=== PATIENT | male | born 1990 | race Caucasian/White ===

== ENCOUNTER 2016-11-01 17:32 | Emergency (ER) | payer SELFPAY ==
[2016-11-01 18:39] VITALS: BP 123/82
--- NOTE | 2016-11-01 19:57 | UC ---
Dental HPI - HPI Summary HPI Summary: has had 5 days of worsening right posterior lower jaw dental pain has a broken tooth and multiples cavities - History of Current Complaint Chief Complaint: UCDentalProblem Stated Complaint: DENTAL Time Seen by Provider: 11/01/16 19:55 Hx Obtained From: Patient Onset/Duration: Sudden Onset, Lasting Days Severity: Moderate Pain Intensity: 6 Pain Scale Used: 0-10 Numeric Aggravating: Chewing Related History: Previous Dental Care on Same Tooth - Allergies/Home Medications Allergies/Adverse Reactions: Allergies Allergy/AdvReac Type Severity Reaction Status Date / Time No Known Allergies Allergy Verified 11/01/16 18:39 Home Medications: Home Medications Aiaqlvr-Ogqtbisdxklor-Fzhguxef [Excedrin Migraine 250-250-65 mg] 3 tab PO ONCE PRN 11/01/16 [History Confirmed 11/01/16] PMH/Surg Hx/FS Hx/Imm Hx Previously Healthy: Yes - Surgical History Surgical History: None - Family History Known Family History: Positive: None - Social History Occupation: Employed Full-time Lives: With Family Alcohol Use: Rare Substance Use Type: None Smoking Status (MU): Light Every Day Tobacco Smoker Type: Cigarettes Amount Used/How Often: 1/4 PPD Length of Time of Smoking/Using Tobacco: 12 YRS Review of Systems Constitutional: Negative Skin: Negative Eyes: Negative ENT: Dental Pain - right lower last molar Respiratory: Negative Cardiovascular: Negative Gastrointestinal: Negative Genitourinary: Negative Motor: Negative Neurovascular: Negative Musculoskeletal: Negative Neurological: Negative Psychological: Negative All Other Systems Reviewed And Are Negative: Yes Physical Exam Triage Information Reviewed: Yes Appearance: Well-Appearing, No Pain Distress, Well-Nourished Vital Signs: Initial Vital Signs Temp 98.4 F 11/01/16 18:32 Pulse 65 11/01/16 18:32 Resp 16 11/01/16 18:32 BP 123/82 11/01/16 18:32 Pulse Ox 100 11/01/16 18:32 Vital Signs Reviewed: Yes Eye Exam: Normal Eyes: Positive: Conjunctiva Clear ENT Exam: Normal ENT: Positive: Normal ENT inspection, Hearing grossly normal, Pharynx normal, TMs normal. Negative: Nasal congestion, Nasal drainage, Tonsillar swelling, Tonsillar exudate, Trismus, Muffled/hoarse voice Dental: Positive: Gross Decay/Caries @, Dental Fracture @ - right lower last molar Neck exam: Normal Neck: Positive: Supple, Nontender, No Lymphadenopathy Respiratory Exam: Normal Respiratory: Positive: Chest non-tender, Lungs clear, Normal breath sounds, No respiratory distress, No accessory muscle use Cardiovascular Exam: Normal Cardiovascular: Positive: RRR, No Murmur, Pulses Normal, Brisk Capillary Refill Musculoskeletal Exam: Normal Musculoskeletal: Positive: Strength Intact, ROM Intact, No Edema Neurological Exam: Normal Neurological: Positive: Alert Psychological Exam: Normal Skin Exam: Normal Dental Complaint Course/Dx - Course Course Of Treatment: antibiodic, pain med, follow with dentist referrals [place] as provided - Differential Dx/Diagnosis Differential Diagnosis/Dx: Dental Abscess, Dental Caries, Fractured Tooth Provider Diagnoses: Dental caries with abscess right lower molars Discharge - Discharge Plan Condition: Stable Disposition: HOME Prescriptions: Amoxicillin CAP* 500 mg PO TID #30 cap HYDROcodone/ACETAMIN 5-325 MG* [[place] 5-325 TAB*] 1 tab PO Q6H PRN #12 tab MDD 4 PRN Reason: Pain Ibuprofen TAB* [Motrin TAB* 600 MG] 600 mg PO Q6H PRN #40 tab PRN Reason: pain Patient Education Materials: Dental Abscess (ED), Dental Caries (ED) Referrals: [facility] [Provider Group] - As Soon As Possible (Mondays 2-6 and -) [facility] [Outside] - As Soon As Possible No Primary Care Phys,NOPCP [Primary Care Provider] - Additional Instructions: [facility] at [phone] is available to help with the cost of your medicine you will need to call them and bring your discharge papers to the office with the cost of the medications quoted to you from the pharmacy.
[2016-11-01] MEDS ORDERED: Amoxicillin PO (*) 500 MG CAP PO ONE (20:03)
[2016-11-01] MEDS ORDERED: HYDROcodone/ACETAMIN 5-325 MG* 1 TAB PO ONE (20:03)
== END 2016-11-01 20:20 | disposition home or self-care (01) ==
LOC: UCCORT 17:32
DX: K02.9 Dental caries, unspecified (principal); K04.7 Periapical abscess without sinus; F17.210 Nicotine dependence, cigarettes, uncomplicated
CPT/HCPCS: 99212; A9270-GY; G0463

== ENCOUNTER 2018-02-28 13:44 | Emergency (ER) | payer BC ==
[2018-02-28 14:02] VITALS: BP 132/81
[2018-02-28] MEDS ORDERED: Ketorolac INJ* 60 MG/2 ML VIAL IM ONE (14:45)
--- NOTE | 2018-02-28 15:35 | RAD ---
Indication: Right scrotal pain. Real-time sonography of the scrotum was performed. The right testis measures 4.9 x 2.0 x 3.1 cm. No intratesticular masses are noted. Doppler interrogation demonstrates normal flow in the right testis. The right epididymis measures 1.3 x 1.4 cm with 2 epididymal cyst measuring 5 mm and 4 mm. There is no hydrocele. The left testis measures 4.5 x 2.2 x 2.8 cm. Normal flow is noted in the left testis. No intratesticular masses are noted. Tiny hyperechoic foci lower Pole left testis may represent some small calcification. The left epididymis measures 1.2 x 1.4 cm with a small 3 mm left epididymal head cyst. No hydrocele is noted. IMPRESSION: No intratesticular masses are noted.
--- NOTE | 2018-02-28 15:57 | UC ---
Merrill King Elizabeth, scribed for Aime Malik MD on 02/28/18 at 1459 . Lower Extremity/Ankle HPI - HPI Summary HPI Summary: This patient is a 28 year old M presenting to [facility] with a chief complaint of right testicular pain and right leg pain since this morning. The patient reports that the pain does not radiate. The patient notes that the pain has worsened since the onset but denies any known injury. 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 The patient rates the pain 8/10 in severity. Symptoms aggravated by ambulation. Symptoms alleviated by nothing. Patient denies edema and dysuria. The patient was found to have increased BP in UC. - History of Current Complaint Chief Complaint: UCGU Stated Complaint: GROIN PAIN Time Seen by Provider: 02/28/18 14:11 Hx Obtained From: Patient Onset/Duration: Sudden Onset - this morning, Lasting Hours, Still Present Severity Initially: Moderate Severity Currently: Moderate Pain Intensity: 8 Pain Scale Used: 0-10 Numeric Aggravating Factor(s): Ambulation Alleviating Factor(s): Nothing Able to Bear Weight: Yes - Allergies/Home Medications Allergies/Adverse Reactions: Allergies Allergy/AdvReac Type Severity Reaction Status Date / Time No Known Allergies Allergy Verified 02/28/18 14:02 Home Medications: Home Medications Gabapentin CAP(*) [Neurontin 100 mg CAP(*)] 1 cap PO DAILY 02/28/18 [History Confirmed 02/28/18] PMH/Surg Hx/FS Hx/Imm Hx Previously Healthy: Yes - Surgical History Surgical History: None - Family History Known Family History: Positive: None, Other - patient denies relevant FHx - Social History Alcohol Use: Rare Substance Use Type: None Smoking Status (MU): Light Every Day Tobacco Smoker Type: Cigarettes Amount Used/How Often: 1/4 PPD Length of Time of Smoking/Using Tobacco: 12 YRS Review of Systems Constitutional: Negative - NEGATIVE FEVER ENT: Negative - NEGATIVE EPISTAXIS Genitourinary: Other - Right testicular pain Musculoskeletal: Other: - RIGHT LEG PAIN All Other Systems Reviewed And Are Negative: Yes Physical Exam - Summary Physical Exam Summary: VITAL SIGNS: Reviewed. GENERAL: Patient is a well-developed and nourished MALE who is lying comfortable in the stretcher. Patient is not in any acute respiratory distress. HEAD AND FACE: Normocephalic EYES: PERRLA, EOMI x 2. EARS: Hearing grossly intact. MOUTH: Oropharynx within normal limits. NECK: Supple, trachea is midline, no adenopathy, no JVD, no carotid bruit. CHEST: Symmetric, no tenderness at palpation LUNGS: Clear to auscultation bilaterally. No wheezing or crackles. CVS: Regular rate and rhythm, S1 and S2 present, no murmurs or gallops appreciated. ABDOMEN: Soft, non-tender. Bowel sounds are normal. No abdominal abnormal pulsations. EXTREMITIES: Full ROM in all major joints, no edema, no cyanosis or clubbing. Good femoral pulses NEURO: Alert and oriented x 3. No acute neurological deficits. Speech is normal and follows commands. SKIN: Dry and warm : Circumcised penis, both testicles are descended. No masses are appreciated. Positive cremasteric reflex. Triage Information Reviewed: Yes Vital Signs: Initial Vital Signs Temp 98.8 F 02/28/18 13:57 Pulse 66 02/28/18 13:57 Resp 14 02/28/18 13:57 BP 132/81 02/28/18 13:57 Pulse Ox 99 02/28/18 13:57 Vital Signs Reviewed: Yes Diagnostics - Radiology US Testicular Xray Interpretation: No Acute Changes Radiology Interpretation Completed By: Radiologist Re-Evaluation - Re-Evaluation 1st re-eval Re-Evaluation Time: 15:56 Change: Unchanged Comment: Discussed imaging results with patient Lower Extremity Course/Dx - Course Course Of Treatment: Patient is a 28-year-old male who presents to the Urgent care with a chief complaint of right thigh pain where the patient to the right inguinal area and right testicle. Testicular exam within normal limits. Tissue has good femoral pulses. There was no inguinal hernia. There is no ecchymosis, hematomas. Neurologic the patient was given Toradol for the pain. Testicular ultrasound impression: no intratesticular masses. Therefore, I believe that the patient has musculoskeletal pain however I cannot rule out femoral hernia. Therefore the patient was discharged home with follow-up with surgery for the primary care physician. He will be given a prescription for ibuprofen. I discussed all the findings and test results with the patient and Patient was instructed to return to the or go to the ED if develops any fever, increase sore throat unable to swallow, drooling, unable to open their mouth, or any other symptoms. The patient understands and agrees. Plan of care was discussed with the patient and understands and agrees. All questions were answered at patient satisfaction. There were no further complaints or concerns. Patient is A + O X 3. hemodynamically stable. - Differential Dx/Diagnosis Differential Diagnosis/HQI/PQRI: Arthritis, Bursitis, Contusion, Sprain, Strain Provider Diagnoses: Musculoskeletal pain Discharge - Sign-Out/Discharge Documenting (check all that apply): Discharge/Admit/Transfer - Discharge Plan Condition: Stable Disposition: HOME Prescriptions: Naproxen [Naproxen 500 mg tab] 500 mg PO BID PRN #30 tablet PRN Reason: Pain Patient Education Materials: Musculoskeletal Pain (ED) Referrals: Pippa Talbert MD [Medical Doctor] - 1 Week Uriah Joseph MD [Primary Care Provider] - 1 Week Additional Instructions: Follow up with your primary care physician within one week for high blood pressure noted today. Follow up with Dr. Talbert, surgeon, in 2-3 days. Return to Urgent Care for any new or worsening symptoms - Billing Disposition and Condition Condition: STABLE Disposition: HOME The documentation as recorded by the Merrill whitten Elizabeth accurately reflects the service I personally performed and the decisions made by , Aime Malik MD.
== END 2018-02-28 15:55 | disposition home or self-care (01) ==
LOC: UCEAST 13:44
DX: M79.651 Pain in right thigh (principal); N50.811 Right testicular pain; F17.210 Nicotine dependence, cigarettes, uncomplicated
CPT/HCPCS: 76870; 81003; 99212; G0463; J1885

== ENCOUNTER 2019-03-02 15:51 | Emergency (ER) | payer BC ==
[2019-03-02 16:11] VITALS: BP 123/80
[2019-03-02] MEDS ORDERED: DOXYcycline CAP(*) 100 MG PO ONE (16:29)
--- NOTE | 2019-03-02 16:36 | ED ---
Skin Complaint - HPI Summary HPI Summary: 29 yr old male with left side chest tick bite. THe patient had a tick on the left side chest, and it was removed yesterday by him. He states it was not engorged and it was on for a day or less. The area is slightly red around the area of the bite. No other symptoms. - History of Current Complaint Chief Complaint: UCSkin Time Seen by Provider: 03/02/19 16:11 Stated Complaint: TICK BITE Pain Intensity: 0 - Allergy/Home Medications Allergies/Adverse Reactions: Allergies Allergy/AdvReac Type Severity Reaction Status Date / Time No Known Allergies Allergy Verified 03/02/19 16:11 Home Medications: Home Medications SUMAtriptan succinate [Sumatriptan Succinate] 100 mg PO SEE INSTRUCTIONS [History Confirmed 03/02/19] PMH/Surg Hx/FS Hx/Imm Hx Endocrine/Hematology History: Denies: Hx Diabetes, Hx Thyroid Disease Cardiovascular History: Denies: Hx Hypertension Respiratory History: Denies: Hx Asthma, Hx Chronic Obstructive Pulmonary Disease (COPD) GI History: Denies: Hx Ulcer Infectious Disease History: No Infectious Disease History: Denies: Hx Hepatitis, Hx Human Immunodeficiency Virus (HIV), Traveled Outside the [place] in Last 30 Days - Family History Known Family History: Positive: None, Other - patient denies relevant FHx - Social History Occupation: Employed Full-time Alcohol Use: Rare Substance Use Type: Reports: Marijuana Smoking Status (MU): Former Smoker Type: Cigarettes Amount Used/How Often: 1/4 PPD Length of Time of Smoking/Using Tobacco: 12 YRS Review of Systems Constitutional: Negative Positive: Other - tick bite to left chest wall All Other Systems Reviewed And Are Negative: Yes Physical Exam Triage Information Reviewed: Yes Vital Signs On Initial Exam: Initial Vitals Temp Pulse Resp BP Pulse Ox 98.4 F 66 18 123/80 99 03/02/19 16:06 03/02/19 16:06 03/02/19 16:06 03/02/19 16:03/02/19 16:06 Vital Signs Reviewed: Yes Appearance: Positive: Well-Appearing, No Pain Distress Skin: Positive: Other - there is an area about the size of a dime that is a bite brice with some redness. COnsistent with localized reaction from a bite. No bulls eye, and no cellulitis. Eyes: Positive: Normal ENT: Positive: Normal ENT inspection Neck: Positive: Nontender Respiratory/Lung Sounds: Positive: Clear to Auscultation, Breath Sounds Present Cardiovascular: Positive: RRR. Negative: Murmur Abdomen Description: Negative: Distended Musculoskeletal: Positive: Strength/ROM Intact Neurological: Positive: Sensory/Motor Intact, Alert, Oriented to Person Place, Time, CN Intact II-III, Normal Gait, Speech Normal Psychiatric: Positive: Normal Diagnostics - Vital Signs Vital Signs Temp Pulse Resp BP Pulse Ox 03/02/19 16:06 98.4 F 66 18 123/80 99 - Laboratory Lab Statement: Any lab studies that have been ordered have been reviewed, and results considered in the medical decision making process. Course/Dx - Course Course Of Treatment: 29 yr old with tick bite. DC home. He was given 200mg of doxy. - Diagnoses Provider Diagnoses: Tick bite Discharge - Sign-Out/Discharge Documenting (check all that apply): Patient Departure All imaging exams completed and their final reports reviewed: No Studies - Discharge Plan Condition: Good Disposition: HOME Patient Education Materials: Tick Bite (ED) Referrals: Uriah Joseph MD [Primary Care Provider] - - Billing Disposition and Condition Condition: GOOD Disposition: Home
== END 2019-03-02 16:44 | disposition home or self-care (01) ==
LOC: UCEAST 15:51
DX: S20.362A Insect bite (nonvenomous) of left front wall of thorax, initial encounter (principal); W57.XXXA Bitten or stung by nonvenomous insect and other nonvenomous arthropods, initial encounter; Y92.9 Unspecified place or not applicable; Z87.891 Personal history of nicotine dependence
CPT/HCPCS: 99212; A9270-GY; G0463

== ENCOUNTER 2019-04-15 14:37 | Emergency (ER) | payer BC, OTHER ==
[2019-04-15 15:34] VITALS: BP 111/80
--- NOTE | 2019-04-15 15:37 | UC ---
Shoulder Pain HPI - HPI Summary HPI Summary: 29 y/o male presents to the urgent care c/o left shoulder pain radiating to the lateral side of his neck s/p injury at work yesterday morning. Pt reports he was standing in a ladder and was pushing on top of a freezer when he felt something shifted in his left shoulder . Then pain was triggered. He applied ice, but has not taken any medications for pain. This morning pain worsen and he is unable to raise hie left shoulder due to pain. Pt denies fever , swelling , SOB, chest pain, abdominal pain, numbness or tingling sensation over the left arm and also denies previous injury. - History of Current Complaint Chief Complaint: UCUpperExtremity Stated Complaint: LEFT SHOULDER INJURY Time Seen by Provider: 04/15/19 15:36 Hx Obtained From: Patient Onset/Duration: Sudden Onset, Lasting Days - 1 day, Still Present, Worse Since - morning Timing: Constant Severity Initially: Moderate Severity Currently: Moderate Location Of Pain: Is Discrete @ - left shoulder Pain Intensity: 5 Pain Scale Used: 0-10 Numeric Character: Sharp, Spasmodic Aggravating Factor(s): Movement, Lifting, Abduction Alleviating Factor(s): Rest, Ice Associated Signs And Symptoms: Positive: Negative. Negative: Swelling, Redness , Bruising, Weakness, Numbness/Tingling Related History: Dominant Hand Right - Risk Factors Non-Orthopedic Risk Factor: Negative DVT Risk Factors: Negative Septic Arthritis Risk Factor: Negative - Allergies/Home Medications Allergies/Adverse Reactions: Allergies Allergy/AdvReac Type Severity Reaction Status Date / Time No Known Allergies Allergy Verified 04/15/19 15:33 PMH/Surg Hx/FS Hx/Imm Hx Previously Healthy: Yes - Pt denies PMHX - Surgical History Surgical History: None - Family History Known Family History: Positive: None - Pt denies FMHX, Other - patient denies relevant FHx - Social History Occupation: Employed Full-time Lives: With Family Alcohol Use: Rare Substance Use Type: Marijuana Substance Use Comment - Amount & Last Used: weekly Smoking Status (MU): Former Smoker Type: Cigarettes Amount Used/How Often: 1/4 PPD Length of Time of Smoking/Using Tobacco: 12 YRS Review of Systems All Other Systems Reviewed And Are Negative: Yes Constitutional: Positive: Negative Skin: Positive: Negative Eyes: Positive: Negative ENT: Positive: Negative Respiratory: Positive: Negative Cardiovascular: Positive: Negative Gastrointestinal: Positive: Negative Genitourinary: Positive: Negative Motor: Positive: Negative Neurovascular: Positive: Negative Musculoskeletal: Positive: Decreased ROM - left shoulder, Other: - left shoulder Neurological: Positive: Negative Psychological: Positive: Negative Is Patient Immunocompromised?: No Physical Exam - Summary Physical Exam Summary: Vital Signs Reviewed: Yes GENERAL: Well-Appearing, No Pain Distress, Well-Nourished male w/o any apparent pain distress Eyes: Positive: Conjunctiva Clear - PERRL,EOMI ENT: Positive: Normal ENT inspection, Hearing grossly normal, Pharyngeal erythema - mild, Nasal drainage - clear, Uvula midline Neck: Positive: Supple, Nontender, No Lymphadenopathy Respiratory: Positive: Chest non-tender, Lungs clear, Normal breath sounds, No respiratory distress Cardiovascular: Positive: RRR, No Murmur, Pulses Normal, Brisk Capillary Refill Abdomen Description: Positive: Nontender, No Organomegaly, Soft. Negative: CVA Tenderness (R), CVA Tenderness (L) Bowel Sounds: Positive: Present Musculoskeletal: LF shoulder: The L shoulder is without obvious asymmetry or deformity when compared to the R shoulder. No ecchymosis or bruising, no crepitus. No bony deformity or prominence of humeral head. No erythema, warmth. No Point Tenderness to palpation over the clavicle, or scapula. positive tenderness over Acromioclavicular joint no swelling, NT to palpation of the humeral head or bicipital groove . NT to palpation of the muscles of the sternocleidomastoid, pectoralis, biceps/triceps, deltoid, mild tenderness over the left lateral trapezius, . Limited ROM due to pain especially in adduction and abduction.on both passive and active, internal/external rotation, flexion/extension. "empty can and drop arm test unable to perform due to pain. No axillary tenderness or lymphadenopathy. Normal sensation over the deltoid and fingers. Distal motor and neurovascular status is intact. Neurological Exam: Normal Psychological Exam: Normal Skin Exam: Normal Triage Information Reviewed: Yes Vital Signs: Initial Vital Signs Temp 99.5 F 04/15/19 15:24 Pulse 68 04/15/19 15:24 Resp 18 04/15/19 15:24 BP 111/80 04/15/19 15:24 Pulse Ox 100 07/17/19 15:24 Shoulder Course/Dx - Course Course Of Treatment: 29 y/o male presents to the urgent care c/o left shoulder pain radiating to the lateral side of his neck s/p injury at work yesterday morning. Pt reports he was standing in a ladder and was pushing on top of a freezer when he felt something shifted in his left shoulder . Then pain was triggered. He applied ice, but has not taken any medications for pain. This morning pain worsen and he is unable to raise hie left shoulder due to pain. Pt denies fever , swelling , SOB, chest pain, abdominal pain, numbness or tingling sensation over the left arm and also denies previous injury. Hx obtained.LF shoulder X-ray ordered: IMPRESSION: NO EVIDENCE FOR FRACTURE. PT given ibuprofen PO by nurse for pain. PT tolerated well medication and felt better. Pt's Rx Ibuprofen PO to alleviate symptoms. Shoulder immobilized with a shoulder sling for 3-4 days. Advised to f/u with Sports medicine orthopedic for for further management. D/c instructions explained. Pt understood and agreed w/ plan of care. - Differential Dx/Diagnosis Differential Diagnosis/HQI/PQRI: Contusion, Dislocation, Rotator Cuff Injury, Sprain, Strain, Tendonitis Provider Diagnosis: Injury of left shoulder, Sprain of left shoulder Discharge - Sign-Out/Discharge Documenting (check all that apply): Patient Departure - d/c home All imaging exams completed and their final reports reviewed: Yes - Discharge Plan Condition: Stable Disposition: HOME Prescriptions: Ibuprofen TAB* [Motrin TAB* 800 MG] 800 mg PO Q6H PRN #30 tab PRN Reason: Pain Patient Education Materials: Shoulder Sprain (ED) Forms: *Work Release Referrals: Uriah Joseph MD [Primary Care Provider] - 3 Days [facility] [Provider Group] - 3 Days Additional Instructions: 1-Please take Ibuprofen PO q6-8hrs prn after meals as directed to alleviate pain and swelling. 2-Please apply ice, keep your shoulder immobilized with the shoulder sling for 3-4 days and then resume movement slowly 3- Please f/u with Sports medicine Orthopedic in 3 days if not improvement of symptoms for further evaluation and treatment. - Billing Disposition and Condition Condition: STABLE Disposition: Home - Attestation Statements Provider Attestation: I was available for consult. This patient was seen by the ELEONORA. The patient was not presented to, seen by, or examined by me. -Elisa
[2019-04-15] MEDS ORDERED: Ibuprofen TAB* 400 MG PO ONE (15:45)
== END 2019-04-15 16:45 | disposition home or self-care (01) ==
LOC: UCEAST 14:37
DX: S43.402A Unspecified sprain of left shoulder joint, initial encounter (principal); X58.XXXA Exposure to other specified factors, initial encounter; Y92.89 Other specified places as the place of occurrence of the external cause; Z87.891 Personal history of nicotine dependence
CPT/HCPCS: 99213; A9270-GY; G0463